=== PATIENT | female | born 1965 | race Hispanic/Latino ===

== ENCOUNTER → 2019-01-02 | Outpatient (CLI) | payer BC | END | disposition home or self-care (01) | LOC: SHCH 10:40 | PROVIDERS: ATTEND Internal Medicine Cardiovascular Disease | DX: I35.0 Nonrheumatic aortic (valve) stenosis (principal); I10 Essential (primary) hypertension | CPT/HCPCS: 93306 ==

== ENCOUNTER → 2019-01-03 | Outpatient (CLI) | payer BC | END | disposition home or self-care (01) | LOC: SHCH 11:19 | PROVIDERS: ATTEND Internal Medicine Cardiovascular Disease | DX: I65.23 Occlusion and stenosis of bilateral carotid arteries (principal) | CPT/HCPCS: 93880 ==

== ENCOUNTER → 2022-08-10 | Outpatient (CLI) | payer BC | END | disposition home or self-care (01) | LOC: RAH 09:52 | PROVIDERS: ATTEND Nurse Practitioner Adult Health | DX: Z12.31 Encounter for screening mammogram for malignant neoplasm of breast (principal) | CPT/HCPCS: 77067 ==

== ENCOUNTER → 2023-09-08 | Outpatient (CLI) | payer BC | END | disposition home or self-care (01) | LOC: RAH 07:39 | PROVIDERS: ATTEND Nurse Practitioner Adult Health | DX: Z12.31 Encounter for screening mammogram for malignant neoplasm of breast (principal) | CPT/HCPCS: 77067 ==

== ENCOUNTER → 2024-09-19 | Outpatient (CLI) | payer BC ==
--- NOTE | 2024-09-21 09:24 | HMCIMG ---
Exam Type: MAMMO SCREENING BILATERAL Clinical Information: ANNUAL SCREENING Comparison: September 08, 2023 Technique: Bilateral mammogram with CAD was performed with CC and MLO projections. FINDINGS: Breast parenchyma is heterogeneously dense which lowers the sensitivity of the mammographic examination. No dominant mass or suspicious microcalcification identified. There is no nipple retraction or skin thickening. Benign-appearing calcifications are seen. CAD shows no worrisome regions. IMPRESSION: 1. No mammographic signs of malignancy. 2. Routine follow-up recommended. CATEGORY 2: BENIGN FINDINGS Note: A negative x-ray should not delay biopsy if a dominant or clinically suspicious mass is present, since 8-10% of cancers are not identified by mammography. Dense breasts may obscure an underlying neoplasm.
== END | disposition home or self-care (01) ==
LOC: RAH 10:46
PROVIDERS: ATTEND Nurse Practitioner Adult Health
DX: Z12.31 Encounter for screening mammogram for malignant neoplasm of breast (principal)
CPT/HCPCS: 77067

== ENCOUNTER 2025-08-18 14:57 | Observation (INO) | payer BC ==
[~2025-08-18] VITALS: Ht 154.9 cm; Wt 59.0 kg
[2025-08-18 17:00] VITALS: BP 160/73; PULSE 65; RESP 16; TEMP 98.2
[2025-08-18] MEDS ORDERED: METO100T14 PO (17:15)
--- NOTE | 2025-08-18 17:53 | HP ---
[facility] HISTORY AND PHYSICAL Date of Service: Aug 18, 2025 Time of Service: 17:35 HISTORY OF PRESENT ILLNESS: [59-year-old female with a history of hypertension presents with recurrent severe epigastric pain. She was seen at [facility] twice this week ( and today) for similar complaints. On both occasions, pain was rated 810/10, located in the epigastric region, and worsened after eating. She reports partial relief with Tylenol (acetaminophen) 2 tablets. No associated nausea, vomiting, diarrhea, fever, or chills. No chest pain or shortness of breath. No radiation of pain. No improvement with antacids, food, position, or lying still. No prior similar episodes. No history of abdominal surgery, alcohol abuse, or gallstones. No recent travel or sick contacts.] REVIEW OF SYSTEMS CONSTITUTIONAL: Denies fevers, chills, or night sweats. No unintentional weight loss reported. NEUROLOGICAL: Denies headache, amaurosis fugax, motor weakness, sensory deficit, vertigo/spinning sensation, gait abnormalities, or tremors. ENT: No hearing loss, otalgia, otorrhea, rhinitis, rhinorrhea, hoarseness, or sore throat. CARDIOVASCULAR: Denies any exertional angina, dyspnea on exertion, orthopnea, paroxysmal nocturnal dyspnea, palpitations, life-threatening arrhythmias, claudication. PULMONARY: Denies any shortness of breath, cough, phlegm/sputum, hemoptysis, pleuritic chest pain. SLEEP: Denies morning headaches, daytime somnolence or napping. Denies difficulty falling asleep, staying asleep, waking from sleep. Denies knowledge of snoring. GASTROINTESTINAL: Denies any type of dysphagia to either liquids or solids. Denies nausea, vomiting, pyrosis, early satiety, abdominal pain, diarrhea, constipation, or changes in stool consistency or caliber. Denies coffee-ground emesis, hematemesis, hematochezia, or melanotic stools. GENITOURINARY: Denies frequency, urgency, nocturia, hematuria or incontinence (Storage/Irritative symptoms.) Low urinary stream, straining to void, urinary intermittency or hesitancy, splitting of the voiding stream, terminal dribbling. ENDOCRINOLOGIC: Denies polyuria, polydipsia, polyphagia or heat/cold intolerances. HEMATOLOGIC: Denies thrombophilia/previous clots, or coagulopathy/bleeding disorders. ONCOLOGIC: Denies personal history of malignancy. DERMATOLOGIC: Denies rashes or pruritus. PSYCHIATRIC: Denies any suicidal or homicidal ideation. Denies hallucinations. 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 Denies tobacco, alcohol or illicit drug use ] FAMILY HISTORY: [Noncontributory ] PHYSICAL EXAM GENERAL APPEARANCE: The patient is awake, alert, and oriented, in no acute cardiopulmonary distress. NEUROLOGICAL: Cranial nerves II-XII grossly intact. Motor is 5/5 in bilateral upper and lower extremities proximal to distal. No sensory deficits. HEENT: Face is symmetric. Pupils are equal and reactive. Extraocular movements are intact. NECK: Supple. No JVD. No thyromegaly. No submental, submandibular, pre- /postauricular, occipital or supraclavicular lymphadenopathy. CHEST: Normal chest expansion. No Telemetry. LUNGS: Absence of any rales, rhonchi or any wheezing. CARDIOVASCULAR: Regular. S1 and S2 normal. No appreciable rubs, murmurs or ga llops. ABDOMEN: Soft, nontender, and nondistended. There is no rebound, voluntary guarding, or rigidity. : Deferred. No [place]. EXTREMITIES: Non-edematous and not cyanotic. No clubbing. Good capillary refill. SKIN: No skin breakdown. LABS: Pending DIAGNOSTICS / RADIOLOGY: [Imaging Abdominal Ultrasound (08/18/2025): Liver: Normal size/echotexture, no focal mass, no biliary ductal dilatation Gallbladder: Normal wall thickness, multiple intraluminal echogenic foci with posterior acoustic shadowing (consistent with cholelithiasis), no pericholecystic fluid, negative [place] sign Biliary Tree: Common bile duct 4.5 mm (normal), no dilation Pancreas/Spleen/Kidneys: Unremarkable Aorta/IVC: Normal caliber, no aneurysm Impression: Cholelithiasis without sonographic evidence of acute cholecystitis ] ASSESSMENT: [ 59-year-old female with hypertension presenting with recurrent, severe, po stprandial epigastric pain. Imaging reveals cholelithiasis without evidence of acute cholecystitis. Labs unremarkable. No evidence of biliary obstruction, pancreatitis, or other acute intra-abdominal pathology. Intractable abdominal pain, POA -current by ultrasound, multiple gallstone present no acute cholecystitis Hypertension -history of hypertension, currently managed Potential biliary colic, POA -symptoms consistent with biliary colic due to cholelithiasis Postprandial pain, POA -pain exacerbated by eating, suggestive of gallbladder involvement ] PLAN: [Admit to short-term observation for pain control and further monitoring. NPO except for medications; advance diet as tolerated. IV fluids as needed for hydration, LR 75 ml/hr. Analgesia: Acetaminophen as needed; avoid NSAIDs due to GI risk. Surgical consult for evaluation of symptomatic cholelithiasis and possible elective cholecystectomy. CT abdomen and pelvis without contrast ordered Gastroenterology consult for possible choledocholithiasis, LFT ordered if unremarkable may discontinue GI consult Monitor labs and clinical status for any signs of cholecystitis or complications. Patient education regarding warning signs (fever, persistent vomiting, jaundice). Continue antihypertensive therapy as home regimen. GI and DVT prophylaxis We will repeat labs tomorrow Patient is a full code Case discussed with attending physician, above plan was formulated ] ADVANCED CARE PLANNING 1. Which of the following were discussed? Hospice Care - Yes / No Therapeutic options - Yes / No Advance Directives - Yes / No Other discussions - 2. Discussed with who? Patient 3. Voluntary nature of this service was explained to the patient? Yes / No 4. Amount of time spent - _20 mins 5. Reviewed by Physician? (if this service was performed by NPP) Yes / No ATTESTATION BY PHYSICIAN I have seen and examined the patient. I reviewed the documentation, medical decision making, and treatment plan as noted by the mid-level provider above. I agree with the findings and plan of care. Chiki Tovar IV, MD, [facility] Aug 18, 2025 17:53
[2025-08-18 18:08] LABS: NUCLEATED RED BLOOD CELLS 0.0 % (0.0-0.19); PLATELET COUNT (AUTO) 223.0 K/uL (130-400); RED BLOOD CELL COUNT(AUTO) 4.24 MIL/uL (4.00-5.50); RED CELL DISTRIBUTION WIDTH 11.7 % (11.0-15.5); WHITE BLOOD COUNT (AUTO) 4.5 K/uL (4.8-10.8)
[2025-08-18 18:18] LABS: CREATININE 0.4 mg/dL (0.5-1.0); GLOMERULAR FILTR. RATE CALC 115.0 mL/min (>90); GLUCOSE,RANDOM 87.0 mg/dL (70-105); INR 0.97 (0.85-1.15); SODIUM SERUM 139.0 mmol/L (136-145); UREA NITROGEN, BLOOD 16.0 mg/dL (7-18)
--- NOTE | 2025-08-18 18:19 | NUR ---
TAKEN OFF UNIT FOR HIDA SCAN
[2025-08-18 18:23] LABS: ASPARTATE AMINOTRANSFERASE 135.0 U/L (10-37); TOTAL PROTEIN, SERUM 7.8 g/dL (6.0-8.3)
[2025-08-18] MEDS: ZOSYN 3.375GM +NS 50ML IV SCH (18:34)
[2025-08-18] MEDS: LACTATED RINGERS 1000ML 1,000 ML IV SCH (18:34)
--- NOTE | 2025-08-18 20:37 | HMCIMG ---
Examination Hepatobiliary study History r/o acute cholecystitis Technique 7 mCi Tc-99m mebrofenin were administered intravenously followed by acquisition of planar images of the abdomen. Findings Following administration of radiotracer, there is prompt appearance of normal hepatic contours, followed by appearance of activity in unremarkable appearing bile ducts. There is prompt filling of the gallbladder. The study is negative for acute cholecystitis. IMPRESSION: Negative HIDA study. No evidence of cholecystitis. /[place]
[2025-08-18 21:05] VITALS: BP 138/59; PULSE 66; RESP 20; TEMP 97.3
[2025-08-19] VITALS (7 sets, daily range): BP systolic 111–124; BP diastolic 54–65; PULSE 63–85; RESP 18; TEMP 97.7–98.3; O2SAT 98–99
[2025-08-19 04:28] LABS: NUCLEATED RED BLOOD CELLS 0.0 % (0.0-0.19); PLATELET COUNT (AUTO) 198.0 K/uL (130-400); RED BLOOD CELL COUNT(AUTO) 3.83 MIL/uL (4.00-5.50); RED CELL DISTRIBUTION WIDTH 11.8 % (11.0-15.5); WHITE BLOOD COUNT (AUTO) 3.2 K/uL (4.8-10.8)
[2025-08-19 04:47] LABS: ASPARTATE AMINOTRANSFERASE 61.0 U/L (10-37); CREATININE 0.4 mg/dL (0.5-1.0); GLOMERULAR FILTR. RATE CALC 115.0 mL/min (>90); GLUCOSE,RANDOM 86.0 mg/dL (70-105); SODIUM SERUM 138.0 mmol/L (136-145); TOTAL PROTEIN, SERUM 6.7 g/dL (6.0-8.3); UREA NITROGEN, BLOOD 19.0 mg/dL (7-18)
--- NOTE | 2025-08-19 05:58 | PN ---
[facility] PROGRESS NOTE Date of Service: Aug 19, 2025 Time of Service: 05:56 SUBJECTIVE: [ ] [59-year-old female with a history of hypertension presents with recurrent severe epigastric pain. She was seen at [facility] twice this week (Wednesday and today) for similar complaints. On both occasions, pain was rated 810/10, located in the epigastric region, and worsened after eating. She reports partial relief with Tylenol (acetaminophen) 2 tablets. No associated nausea, vomiting, diarrhea, fever, or chills. No chest pain or shortness of breath. No radiation of pain. No improvement with antacids, food, position, or lying still. No prior similar episodes. No history of abdominal surgery, alcohol abuse, or gallstones. No recent travel or sick contacts.] 08/19/25 The patient continue with abd pain: reports being dull, she remain NPO waiting for surgery: no fever, no chills. REVIEW OF SYSTEMS CONSTITUTIONAL: Denies fevers, chills, or night sweats. No unintentional weight loss reported. NEUROLOGICAL: Denies headache, amaurosis fugax, motor weakness, sensory deficit, vertigo/spinning sensation, gait abnormalities, or tremors. ENT: No hearing loss, otalgia, otorrhea, rhinitis, rhinorrhea, hoarseness, or sore throat. CARDIOVASCULAR: Denies any exertional angina, dyspnea on exertion, orthopnea, paroxysmal nocturnal dyspnea, palpitations, life-threatening arrhythmias, claudication. PULMONARY: Denies any shortness of breath, cough, phlegm/sputum, hemoptysis, pleuritic chest pain. SLEEP: Denies morning headaches, daytime somnolence or napping. Denies difficulty falling asleep, staying asleep, waking from sleep. Denies knowledge of snoring. GASTROINTESTINAL: Denies any type of dysphagia to either liquids or solids. Denies nausea, vomiting, pyrosis, early satiety, abdominal pain, diarrhea, constipation, or changes in stool consistency or caliber. Denies coffee-ground emesis, hematemesis, hematochezia, or melanotic stools. GENITOURINARY: Denies frequency, urgency, nocturia, hematuria or incontinence (Storage/Irritative symptoms.) Low urinary stream, straining to void, urinary intermittency or hesitancy, splitting of the voiding stream, terminal dribbling. ENDOCRINOLOGIC: Denies polyuria, polydipsia, polyphagia or heat/cold intolerances. HEMATOLOGIC: Denies thrombophilia/previous clots, or coagulopathy/bleeding disorders. ONCOLOGIC: Denies personal history of malignancy. DERMATOLOGIC: Denies rashes or pruritus. PSYCHIATRIC: Denies any suicidal or homicidal ideation. Denies hallucinations. PHYSICAL EXAM GENERAL APPEARANCE: The patient is awake, alert, and oriented, in no acute cardiopulmonary distress. NEUROLOGICAL: Cranial nerves II-XII grossly intact. Motor is 5/5 in bilateral upper and lower extremities proximal to distal. No sensory deficits. HEENT: Face is symmetric. Pupils are equal and reactive. Extraocular movements are intact. NECK: Supple. No JVD. No thyromegaly. No submental, submandibular, pre- /postauricular, occipital or supraclavicular lymphadenopathy. CHEST: Normal chest expansion. No Telemetry. LUNGS: Absence of any rales, rhonchi or any wheezing. CARDIOVASCULAR: Regular. S1 and S2 normal. No appreciable rubs, murmurs or gallops. ABDOMEN: Soft, nontender, and nondistended. There is no rebound, voluntary guarding, or rigidity. : Deferred. No [place]. EXTREMITIES: Non-edematous and not cyanotic. No clubbing. Good capillary refill. SKIN: No skin breakdown. Vital Signs (last 8hr) Date Time Temp Pulse Resp B/P (MAP) Pulse Ox O2 Delivery O2 Flow Rate FiO2 08/19/25 04:00 97.7 64 18 112/54 100 Room Air 08/19/25 00:00 97.7 63 18 111/59 99 Room Air 08/19/25 00:00 97.7 63 18 111/59 99 Room Air LABS: Laboratory: Test 08/19/25 04:10 08/18/25 17:45 Range/Units White Blood Count 3.2 #L 4.8-10.8 K/uL Red Blood Count 3.83 L 4.00-5.50 MIL/uL Hemoglobin 12.1 12.0-16.0 g/dL Hematocrit 34.4 L 36-48 % Mean Corpuscular Volume 89.8 79-99 fL Mean Corpuscular Hemoglobin 31.6 27.0-33.0 pg Mean Corpuscular Hemoglobin Concent 35.2 32.0-36.0 g/dL Red Cell Distribution Width 11.8 11.0-15.5 % Platelet Count 198 130-400 K/uL Mean Platelet Volume 10.6 H 7.5-10.5 fL Nucleated Red Blood Cells 0.0 0.0-0.19 % Sodium Level 138 136-145 mmol/L Potassium Level 3.3 L 3.5-5.1 mmol/L Chloride Level 103 101-111 mmol/L Carbon Dioxide Level 25 21-32 mmol/L Blood Urea Nitrogen 19 H 7-18 mg/dL Creatinine 0.4 L 0.5-1.0 mg/dL Glomerular Filtration Rate Calc 115 >90 mL/min Random Glucose 86 70-105 mg/dL Total Calcium 8.6 8.5-10.1 mg/dL Magnesium Level 2.20 1.80-2.40 mg/dL Total Bilirubin 1.0 # 0.2-1.0 mg/dL Aspartate Amino Transf (AST/SGOT) 61 H 10-37 U/L Alanine Aminotransferase (ALT/SGPT) 93 #H 12-78 U/L Alkaline Phosphatase 59 50-136 U/L Total Protein 6.7 6.0-8.3 g/dL Albumin 3.4 L 3.5-5.0 g/dL Prothrombin Time 10.3 9.6-11.6 SEC Prothromb Time International Ratio 0.97 0.85-1.15 Direct Bilirubin 0.1 0.0-0.3 mg/dL Current Medications Medications (Trade) Dose Ordered Sig/Sunshine Route PRN Reason Start Time Stop Time Status Last Admin Dose Admin Acetaminophen (TYLenol 325MG TAB) 650 mg Q4H PRN PO TEMPERATURE GREATER THAN 101.5 08/18/25 17:30 09/17/25 17:29 Acetaminophen (TYLenol 325MG TAB) 650 mg Q6H PRN PO MILD PAIN (1-3) 08/18/25 17:30 09/17/25 17:29 Acetaminophen (acetaMINOPHEN 1,000MG/100ML) 1,000 mg Q6H6 IVPB 08/18/25 18:00 09/17/25 17:59 08/19/25 02:05 1,000 MG Hydralazine HCl (APRESOLine 20MG INJ) 10 mg Q6H PRN IV ADMINISTER FOR SBP > 160 08/18/25 18:00 09/17/25 17:59 Lactated Ringer's 1,000 ml @ 75 mls/hr [id number] IV 08/18/25 17:30 09/17/25 17:29 08/18/25 18:34 75 MLS/HR Morphine Sulfate (morPHINE 2MG SYG) 2 mg Q4H PRN IVP SEVERE PAIN (7-10) 08/18/25 17:30 08/25/25 17:29 Ondansetron HCl (zoFRAN 4MG INJ) 4 mg Q6H PRN IVP NAUSEA/VOMITING 08/18/25 17:30 09/17/25 17:29 Piperacillin Sod/ Tazobactam Sod (Zosyn 3.375gm+NS 50ml) 3.375 gm Q8H IV 08/18/25 17:30 08/28/25 17:29 08/19/25 02:27 3.375 GM DIAGNOSTICS / RADIOLOGY: [ ] ASSESSMENT: [ 59-year-old female with hypertension presenting with recurrent, severe, postprandial epigastric pain. Imaging reveals cholelithiasis without evidence of acute cholecystitis. Labs unremarkable. No evidence of biliary obstruction, pancreatitis, or other acute intra-abdominal pathology. Intractable abdominal pain, POA -current by ultrasound, multiple gallstone present no acute cholecystitis Hypertension -history of hypertension, currently managed Potential biliary colic, POA -symptoms consistent with biliary colic due to cholelithiasis Postprandial pain, POA -pain exacerbated by eating, suggestive of gallbladder involvement ] PLAN: [Admit to short-term observation for pain control and further monitoring. NPO except for medications; advance diet as tolerated. IV fluids as needed for hydration, LR 75 ml/hr. Analgesia: Acetaminophen as needed; avoid NSAIDs due to GI risk. Surgical consult for evaluation of symptomatic cholelithiasis and possible elective cholecystectomy. imaging: CT abd noted Monitor labs and clinical status for any signs of cholecystitis or complications. Patient education regarding warning signs (fever, persistent vomiting, jaundice). Continue antihypertensive therapy as home regimen. GI and DVT prophylaxis We will repeat labs tomorrow Patient is a full code Case discussed with attending physician, above plan was formulated ] ATTESTATION BY PHYSICIAN I have seen and examined the patient. I reviewed the documentation, medical decision making, and treatment plan as noted by the mid-level provider above. I agree with the findings and plan of care. Chiki Tovar IV, MD, [facility] Aug 19, 2025 05:58
[2025-08-19] MEDS ORDERED: MAGNESIUM 2GM PREMIX 50ML 50 ML IV PRN (06:00)
--- NOTE | 2025-08-19 07:53 | HMCIMG ---
EXAM: CT Abdomen and Pelvis Without IV contrast CLINICAL HISTORY: Patient presents with abdominal pain and suspected cholelithiasis. TECHNIQUE: Axial computed tomography images of the abdomen and pelvis without intravenous contrast. CONTRAST: No IV contrast. COMPARISON: None provided. FINDINGS: LUNG BASES: The lung bases appear clear. No pleural effusions are seen. LIVER: Unremarkable. GALLBLADDER AND BILE DUCTS: The gallbladder contains at least two calculi measuring 1.9 cm x 1.6 cm, consistent with cholelithiasis without features of cholecystitis. No biliary ductal dilatation is evident. PANCREAS: Unremarkable. SPLEEN: Unremarkable. ADRENAL GLANDS: The left adrenal gland contains a 1.2 x 1.5 cm nodule with average HU of 15. Dedicated CT adrenal protocol is recommended. The right adrenal gland is unremarkable. KIDNEYS, URETERS, AND BLADDER: The kidneys appear within normal limits. There is no hydronephrosis or hydroureter. No urinary calculi are seen. STOMACH AND BOWEL: The stomach appears unremarkable. The small bowel loops are under distended. The remainder of the bowel is unremarkable. No evidence of bowel obstruction. No evidence suggesting enteritis or colitis. APPENDIX: The appendix is unremarkable. No evidence of acute appendicitis on CT examination. PERITONEUM: No free fluid. No free air. LYMPH NODES: No lymphadenopathy is evident. REPRODUCTIVE: Unremarkable as visualized. VASCULATURE: Mild atherosclerotic aortic wall calcification is present. No evidence of abdominal aortic aneurysm. BONES: Mild degenerative changes are present in the spine. No aggressive appearing osseous lesion. No acute osseous pathology evident. IMPRESSION: Cholelithiasis without CT features of cholecystitis. Indeterminate 1.2 x 1.5 cm left adrenal nodule with average HU of 15; recommend dedicated CT adrenal protocol. No acute intra-abdominal or pelvic abnormality otherwise. /[place]
--- NOTE | 2025-08-19 11:00 | NUR ---
MET WITH PATIENT AND DTR AT BEDSIDE, PT LIVES ALONE, INDEPENDENT, ACTIVE, DRIVES, EMPLOYED NO HOME SERVICES. NO HOME SERVICES, DCP IS HOME . IF NEEDS SURGERY ON THIS ADMIT, DTR WILL [facility]. NO DC NEEDS ANTICIPATED AT THIS POINT
--- NOTE | 2025-08-19 15:25 | CONS ---
GENERAL SURGERY CONSULTATION NOTE Date/Time Patient Seen: 08/19/2025 2:00 p.m. Requesting Physician: Hospitalist Reason for Consultation: Right upper quadrant abdominal pain History of Present Illness: This is a 59-year-old female that presented to the emergency department for right upper quadrant abdominal pain that appears to have been occurring on and off since Wednesday. Patient reports she has also had multiple similar episodes in the past that were less severe and shorter induration. Patient was afebrile and hemodynamically stable. No leukocytosis. Bilirubin within normal limits. Right upper quadrant ultrasound was performed showing cholelithiasis. A HIDA scan was performed which did not show evidence of acute cholecystitis. Patient was admitted and started on IV antibiotics. Patient reports that her symptoms have resolved. She is hungry. Past Medical History: Some arrhythmia and takes metoprolol not AC Past Surgical History: None Family History: Noncontributory Social History: Nonsmoker nondrinker Current Medications Medications (Trade) Dose Ordered Sig/Sunshine Route Start Time Stop Time Status Last Admin Dose Admin Acetaminophen (acetaMINOPHEN 1,000MG/100ML) 1,000 mg Q6H6 IVPB 08/18/25 18:00 09/17/25 17:59 08/19/25 13:01 1,000 MG Lactated Ringer's 1,000 ml @ 75 mls/hr [id number] IV 08/18/25 17:30 09/17/25 17:29 08/18/25 18:34 75 MLS/HR Piperacillin Sod/ Tazobactam Sod (Zosyn 3.375gm+NS 50ml) 3.375 gm Q8H IV 08/18/25 17:30 08/28/25 17:29 08/19/25 09:47 3.375 GM Review of Systems: CONST: No fever, fatigue, or weight changes. EYES: No recent vision problems. ENT: No congestion, ear pain, or sore throat. C/V: No chest pain, palpitations, or edema. RESP: No cough, congestion, wheezing or shortness of breath. GI: No abdominal pain, nausea, vomiting, constipation, or diarrhea. : No incontinence or dysuria. SKIN: No rash. NEURO: No headache, focal numbness or weakness, dizziness, or seizures. PSYCH: No depression or anxiety. HEME: No abnormal bruising or bleeding. LYMPH: No swollen glands. Physical Examination: GENERAL: No acute distress. HEAD: Normal with no signs of head trauma. EYES: PERRLA, EOMI, conjunctiva and sclera normal. LUNGS: Respirations nonlabored HEART: Regular rate and rhythm ABD: Soft, nondistended, nontender, no rebound, no guarding : Not examined LYMPH: No lymphadenopathy noted. EXT: No clubbing, cyanosis or edema. SKIN: No rashes or lesions noted. NEURO: Awake, alert, and oriented x3. No focal sensory or strength deficits noted. Vital Signs (last 8hr) Date Time Temp Pulse Resp B/P (MAP) Pulse Ox O2 Delivery O2 Flow Rate FiO2 08/19/25 12:00 98.2 85 18 117/63 99 Room Air 08/19/25 08:00 97.9 74 18 124/65 99 Room Air Laboratory: Hematology Labs: Test 08/19/25 04:10 Range/Units White Blood Count 3.2 #L 4.8-10.8 K/uL Red Blood Count 3.83 L 4.00-5.50 MIL/uL Hemoglobin 12.1 12.0-16.0 g/dL Hematocrit 34.4 L 36-48 % Mean Corpuscular Volume 89.8 79-99 fL Mean Corpuscular Hemoglobin 31.6 27.0-33.0 pg Mean Corpuscular Hemoglobin Concent 35.2 32.0-36.0 g/dL Red Cell Distribution Width 11.8 11.0-15.5 % Platelet Count 198 130-400 K/uL Mean Platelet Volume 10.6 H 7.5-10.5 fL Nucleated Red Blood Cells 0.0 0.0-0.19 % Chemistry Labs: Test 08/19/25 04:10 08/18/25 17:45 Range/Units Sodium Level 138 136-145 mmol/L Potassium Level 3.3 L 3.5-5.1 mmol/L Chloride Level 103 101-111 mmol/L Carbon Dioxide Level 25 21-32 mmol/L Blood Urea Nitrogen 19 H 7-18 mg/dL Creatinine 0.4 L 0.5-1.0 mg/dL Glomerular Filtration Rate Calc 115 >90 mL/min Random Glucose 86 70-105 mg/dL Total Calcium 8.6 8.5-10.1 mg/dL Magnesium Level 2.20 1.80-2.40 mg/dL Total Bilirubin 1.0 # 0.2-1.0 mg/dL Aspartate Amino Transf (AST/SGOT) 61 H 10-37 U/L Alanine Aminotransferase (ALT/SGPT) 93 #H 12-78 U/L Alkaline Phosphatase 59 50-136 U/L Total Protein 6.7 6.0-8.3 g/dL Albumin 3.4 L 3.5-5.0 g/dL Direct Bilirubin 0.1 0.0-0.3 mg/dL Coagulation Labs: Test 08/18/25 17:45 Range/Units Prothrombin Time 10.3 9.6-11.6 SEC Prothromb Time International Ratio 0.97 0.85-1.15 Diagnostics / Radiology: PATIENT: NATASHA PASTRANA MR#: [id number] : 1965 SEX: F AGE: 59 LOCATION: S ORDER 31 STATUS: ADM IN REPORT#: [id number] SERVICE 21 REASON: abd pain, ? cholelithiasis ORDERING PHYSICIAN: RODO ADLERP PROCEDURE: ABD PEL WO - CT ABDOMEN/PELVIS W/O CONTRAST EXAM: CT Abdomen and Pelvis Without IV contrast CLINICAL HISTORY: Patient presents with abdominal pain and suspected cholelithiasis. TECHNIQUE: Axial computed tomography images of the abdomen and pelvis without intravenous contrast. CONTRAST: No IV contrast. COMPARISON: None provided. FINDINGS: LUNG BASES: The lung bases appear clear. No pleural effusions are seen. LIVER: Unremarkable. GALLBLADDER AND BILE DUCTS: The gallbladder contains at least two calculi measuring 1.9 cm x 1.6 cm, consistent with cholelithiasis without features of cholecystitis. No biliary ductal dilatation is evident. PANCREAS: Unremarkable. SPLEEN: Unremarkable. ADRENAL GLANDS: The left adrenal gland contains a 1.2 x 1.5 cm nodule with average HU of 15. Dedicated CT adrenal protocol is recommended. The right adrenal gland is unremarkable. KIDNEYS, URETERS, AND BLADDER: The kidneys appear within normal limits. There is no hydronephrosis or hydroureter. No urinary calculi are seen. STOMACH AND BOWEL: The stomach appears unremarkable. The small bowel loops are under distended. The remainder of the bowel is unremarkable. No evidence of bowel obstruction. No evidence suggesting enteritis or colitis. APPENDIX: The appendix is unremarkable. No evidence of acute appendicitis on CT examination. PERITONEUM: No free fluid. No free air. LYMPH NODES: No lymphadenopathy is evident. REPRODUCTIVE: Unremarkable as visualized. VASCULATURE: Mild atherosclerotic aortic wall calcification is present. No evidence of abdominal aortic aneurysm. BONES: Mild degenerative changes are present in the spine. No aggressive appearing osseous lesion. No acute osseous pathology evident. IMPRESSION: Cholelithiasis without CT features of cholecystitis. Indeterminate 1.2 x 1.5 cm left adrenal nodule with average HU of 15; recommend dedicated CT adrenal protocol. No acute intra-abdominal or pelvic abnormality otherwise. /[facility] DICTATED BY: BISHOP GIBSON MD DATE: 08/19/25851 ELECTRONICALLY SIGNED BY: BISHOP GIBSON MD DATE: 08/19/25851 PATIENT: NATASHA PASTRANA MR#: [id number] : 1965 SEX: F AGE: 59 LOCATION: 1MS ORDER 31 STATUS: ADM IN [facility] REPORT#: [id number] SERVICE 21 REASON: r/o acute cholecystitis ORDERING PHYSICIAN: RODO ADLER AGAP PROCEDURE: HIDAWO - NM HIDA WO EF/CCK Examination Hepatobiliary study History r/o acute cholecystitis Technique 7 mCi Tc-99m mebrofenin were administered intravenously followed by acquisition of planar images of the abdomen. Findings Following administration of radiotracer, there is prompt appearance of normal hepatic contours, followed by appearance of activity in unremarkable appearing bile ducts. There is prompt filling of the gallbladder. The study is negative for acute cholecystitis. IMPRESSION: Negative HIDA study. No evidence of cholecystitis. /[facility] DICTATED BY: JULIO CESAR ALVARADO Jr., MD DATE: 08/18/252135 ELECTRONICALLY SIGNED BY: JULIO CESAR ALVARADO Jr., MD DATE: 08/18/252135 Assessment: This is a 59-year-old female with episodes of right upper quadrant abdominal pain likely due to symptomatic cholelithiasis. Plan: I recommend to give the patient a diet. If she tolerates she can be discharged with follow up with me to discuss surgical options. JASS CHRISTIAN DO Aug 19, 2025 15:25
--- NOTE | 2025-08-19 19:11 | NUR ---
REPAGED GI CONSULT CONSULT PAGED FOR LILLIAN ADLER MD.
[2025-08-20] VITALS: BP 96/54; PULSE 68; RESP 18; TEMP 97.9
[2025-08-20 04:00] VITALS: BP 123/60; PULSE 65; RESP 18; TEMP 98
[2025-08-20] MEDS: ZOSYN 3.375GM +NS 50ML IV SCH (06:08)
[2025-08-20] MEDS ORDERED: PoTASSium chl 10% ELIXIR 20MEQ 20 MEQ/15 ML UDCUP PO PRN (07:30)
[2025-08-20] MEDS ORDERED: PoTASSium chloRIDE 20MEQ ER 20 MEQ ERTAB PO PRN (07:30)
[2025-08-20 07:31] VITALS: BP 127/65; PULSE 67; RESP 18; TEMP 97.8
--- NOTE | 2025-08-20 09:46 | DS ---
Discharge Summary Hospital Course Summary: [59-year-old female with a history of hypertension presents with recurrent severe epigastric pain. She was seen at [facility] twice this week (Wednesday and today) for similar complaints. On both occasions, pain was rated 810/10, located in the epigastric region, and worsened after eating. She reports partial relief with Tylenol (acetaminophen) 2 tablets. No associated nausea, vomiting, diarrhea, fever, or chills. No chest pain or shortness of breath. No radiation of pain. No improvement with antacids, food, position, or lying still. No prior similar episodes. No history of abdominal surgery, alcohol abuse, or gallstones. No recent travel or sick contacts.] 08/19/25 The patient continue with abd pain: reports being dull, she remain NPO waiting for surgery: no fever, no chills. 08/20/2025 patient is clinically and hemodynamically stable for discharge. No surgical intervention as per general surgeon patient tolerating diet no nausea no vomiting no abdominal pain patient to follow-up with surgical services to discuss surgical options outpatient setting. No Chest pain or shortness for breath all questions addressed Final General Surgery Recommendations Assessment: This is a 59-year-old female with episodes of right upper quadrant abdominal pain likely due to symptomatic cholelithiasis. Plan: I recommend to give the patient a diet. If she tolerates she can be discharged with follow up with me to discuss surgical options. Decision was made to discharge patient. Follow up with PCP and General Surgery. Medications as per med rec. 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 Requesting Physician: Hospitalist Reason for Consultation: Right upper quadrant abdominal pain History of Present Illness: This is a 59-year-old female that presented to the emergency department for right upper quadrant abdominal pain that appears to have been occurring on and off since Wednesday. Patient reports she has also had multiple similar episodes in the past that were less severe and shorter induration. Patient was afebrile and hemodynamically stable. No leukocytosis. Bilirubin within normal limits. Right upper quadrant ultrasound was performed showing cholelithiasis. A HIDA scan was performed which did not show evidence of acute cholecystitis. Patient was admitted and started on IV antibiotics. Patient reports that her symptoms have resolved. She is hungry. Past Medical History: Some arrhythmia and takes metoprolol not AC Past Surgical History: None Family History: Noncontributory Social History: Nonsmoker nondrinker Current Medications Medications (Trade) Dose Ordered Sig/Sunshine Route Start Time Stop Time Status Last Admin Dose Admin Acetaminophen (acetaMINOPHEN 1,000MG/100ML) 1,000 mg Q6H6 IVPB 08/18/25 18:00 09/17/25 17:59 08/19/25 13:01 1,000 MG Lactated Ringer's 1,000 ml @ 75 mls/hr [id number] IV 08/18/25 17:30 09/17/25 17:29 08/18/25 18:34 75 MLS/HR Piperacillin Sod/ Tazobactam Sod (Zosyn 3.375gm+NS 50ml) 3.375 gm Q8H IV 08/18/25 17:30 08/28/25 17:29 08/19/25 09:47 3.375 GM Review of Systems: CONST: No fever, fatigue, or weight changes. EYES: No recent vision problems. ENT: No congestion, ear pain, or sore throat. C/V: No chest pain, palpitations, or edema. RESP: No cough, congestion, wheezing or shortness of breath. GI: No abdominal pain, nausea, vomiting, constipation, or diarrhea. : No incontinence or dysuria. SKIN: No rash. NEURO: No headache, focal numbness or weakness, dizziness, or seizures. PSYCH: No depression or anxiety. HEME: No abnormal bruising or bleeding. LYMPH: No swollen glands. Physical Examination: GENERAL: No acute distress. HEAD: Normal with no signs of head trauma. EYES: PERRLA, EOMI, conjunctiva and sclera normal. LUNGS: Respirations nonlabored HEART: Regular rate and rhythm ABD: Soft, nondistended, nontender, no rebound, no guarding : Not examined LYMPH: No lymphadenopathy noted. EXT: No clubbing, cyanosis or edema. SKIN: No rashes or lesions noted. NEURO: Awake, alert, and oriented x3. No focal sensory or strength deficits noted. Vital Signs (last 8hr) Date Time Temp Pulse Resp B/P (MAP) Pulse Ox O2 Delivery O2 Flow Rate FiO2 08/19/25 12:00 98.2 85 18 117/63 99 Room Air 08/19/25 08:00 97.9 74 18 124/65 99 Room Air Laboratory: Hematology Labs: Test 08/19/25 04:10 Range/Units White Blood Count 3.2 #L 4.8-10.8 K/uL Red Blood Count 3.83 L 4.00-5.50 MIL/uL Hemoglobin 12.1 12.0-16.0 g/dL Hematocrit 34.4 L 36-48 % Mean Corpuscular Volume 89.8 79-99 fL Mean Corpuscular Hemoglobin 31.6 27.0-33.0 pg Mean Corpuscular Hemoglobin Concent 35.2 32.0-36.0 g/dL Red Cell Distribution Width 11.8 11.0-15.5 % Platelet Count 198 130-400 K/uL Mean Platelet Volume 10.6 H 7.5-10.5 fL Nucleated Red Blood Cells 0.0 0.0-0.19 % Chemistry Labs: Test 08/19/25 04:10 08/18/25 17:45 Range/Units Sodium Level 138 136-145 mmol/L Potassium Level 3.3 L 3.5-5.1 mmol/L Chloride Level 103 101-111 mmol/L Carbon Dioxide Level 25 21-32 mmol/L Blood Urea Nitrogen 19 H 7-18 mg/dL Creatinine 0.4 L 0.5-1.0 mg/dL Glomerular Filtration Rate Calc 115 >90 mL/min Random Glucose 86 70-105 mg/dL Total Calcium 8.6 8.5-10.1 mg/dL Magnesium Level 2.20 1.80-2.40 mg/dL Total Bilirubin 1.0 # 0.2-1.0 mg/dL Aspartate Amino Transf (AST/SGOT) 61 H 10-37 U/L Alanine Aminotransferase (ALT/SGPT) 93 #H 12-78 U/L Alkaline Phosphatase 59 50-136 U/L Total Protein 6.7 6.0-8.3 g/dL Albumin 3.4 L 3.5-5.0 g/dL Direct Bilirubin 0.1 0.0-0.3 mg/dL Coagulation Labs: Test 08/18/25 17:45 Range/Units Prothrombin Time 10.3 9.6-11.6 SEC Prothromb Time International Ratio 0.97 0.85-1.15 Diagnostics / Radiology: PATIENT: NATASHA PASTRANA MR#: [id number] : 1965 SEX: F AGE: 59 LOCATION: 1MS ORDER 31 STATUS: ADM IN REPORT#: [id number] SERVICE 21 REASON: abd pain, ? cholelithiasis ORDERING PHYSICIAN: RODO ADLER PROCEDURE: ABD PEL WO - CT ABDOMEN/PELVIS W/O CONTRAST EXAM: CT Abdomen and Pelvis Without IV contrast CLINICAL HISTORY: Patient presents with abdominal pain and suspected cholelithiasis. TECHNIQUE: Axial computed tomography images of the abdomen and pelvis without intravenous contrast. CONTRAST: No IV contrast. COMPARISON: None provided. FINDINGS: LUNG BASES: The lung bases appear clear. No pleural effusions are seen. LIVER: Unremarkable. GALLBLADDER AND BILE DUCTS: The gallbladder contains at least two calculi measuring 1.9 cm x 1.6 cm, consistent with cholelithiasis without features of cholecystitis. No biliary ductal dilatation is evident. PANCREAS: Unremarkable. SPLEEN: Unremarkable. ADRENAL GLANDS: The left adrenal gland contains a 1.2 x 1.5 cm nodule with average HU of 15. Dedicated CT adrenal protocol is recommended. The right adrenal gland is unremarkable. KIDNEYS, URETERS, AND BLADDER: The kidneys appear within normal limits. There is no hydronephrosis or hydroureter. No urinary calculi are seen. STOMACH AND BOWEL: The stomach appears unremarkable. The small bowel loops are under distended. The remainder of the bowel is unremarkable. No evidence of bowel obstruction. No evidence suggesting enteritis or colitis. APPENDIX: The appendix is unremarkable. No evidence of acute appendicitis on CT examination. PERITONEUM: No free fluid. No free air. LYMPH NODES: No lymphadenopathy is evident. REPRODUCTIVE: Unremarkable as visualized. VASCULATURE: Mild atherosclerotic aortic wall calcification is present. No evidence of abdominal aortic aneurysm. BONES: Mild degenerative changes are present in the spine. No aggressive appearing osseous lesion. No acute osseous pathology evident. IMPRESSION: Cholelithiasis without CT features of cholecystitis. Indeterminate 1.2 x 1.5 cm left adrenal nodule with average HU of 15; recommend dedicated CT adrenal protocol. No acute intra-abdominal or pelvic abnormality otherwise. /[facility] DICTATED BY: BISHOP GIBSON MD DATE: 08/19/25851 ELECTRONICALLY SIGNED BY: BISHOP GIBSON MD DATE: 08/19/25851 PATIENT: NATASHA PASTRANA MR#: [id number] : 1965 SEX: F AGE: 59 LOCATION: 1MS ORDER 31 STATUS: ADM IN [facility] REPORT#: [id number] SERVICE 21 REASON: r/o acute cholecystitis ORDERING PHYSICIAN: RODO ADLER AGACNP PROCEDURE: HIDAWO - NM HIDA WO EF/CCK Examination Hepatobiliary study History r/o acute cholecystitis Technique 7 mCi Tc-99m mebrofenin were administered intravenously followed by acquisition of planar images of the abdomen. Findings Following administration of radiotracer, there is prompt appearance of normal hepatic contours, followed by appearance of activity in unremarkable appearing bile ducts. There is prompt filling of the gallbladder. The study is negative for acute cholecystitis. IMPRESSION: Negative HIDA study. No evidence of cholecystitis. /[facility] DICTATED BY: JULIO CESAR ALVARADO Jr., MD DATE: 08/18/252135 ELECTRONICALLY SIGNED BY: JULIO CESAR ALVARADO Jr., MD DATE: 08/18/252135 Assessment: This is a 59-year-old female with episodes of right upper quadrant abdominal pain likely due to symptomatic cholelithiasis. Plan: I recommend to give the patient a diet. If she tolerates she can be discharged with follow up with me to discuss surgical options. Assessment/Plan: Discharged [ 59-year-old female with hypertension presenting with recurrent, severe, postprandial epigastric pain. Imaging reveals cholelithiasis without evidence of acute cholecystitis. Labs unremarkable. No evidence of biliary obstruction, pancreatitis, or other acute intra-abdominal pathology. Intractable abdominal pain, POA resolved Hypertension Potential biliary colic, POA Postprandial pain, POA resolved PLAN: ADMISSION DATE: 08/18/2025 DISCHARGE DATE: 08/20/2025 DISPOSITION: Home CONDITION: Stable DIRECTOR CONSTRUCTION SERVICES(S): General surgeon FOLLOW UP APPOINTMENT(S): PCP 2-[address] Womack 1 wk to discussed Surgical options. PROCEDURES: No surgical intervention on this admission IMAGING (S) report attached to summary : HIDA scan abdomen pelvis CT MICROBIOLOGY: report attached to summary; none ACTIVITY: Ad yordan HOME MEDICATIONS reviewed we will continue CHANGES ON HOME MEDICATIONS none NEW MEDICATIONS none TEACHING: Advised to avoid greasy foods, and high saturated fats. Emergency instructions: The patient was instructed to present to the nearest Emergency Department or call 911 should their symptoms return or worsen. Home Medications: Reported Medications Metoprolol Tartrate (Metoprolol Tartrate) 100 Mg Tablet, 1 TAB PO BID for 30 Days, #60 TAB 0 Refills 08/18/25 Continued Medications: Metoprolol Tartrate (Metoprolol Tartrate) 100 Mg Tablet 1 TAB PO BID for 30 Days, #60 TAB 0 Refills Time spent arranging discharge: 31-60 minutes ATTESTATION BY PHYSICIAN I have seen and examined the patient. I reviewed the documentation, medical decision making, and treatment plan as noted by the mid-level provider above. I agree with the findings and plan of care. Chiki Kline IV, MD, [facility] Aug 20, 2025 09:46 CHIKI KLINE IV, MD Aug 20, 2025 19:29
[2025-08-20 10:03] LABS: IMMATURE GRANULOCYTE ABSOLUTE 0.00 K/uL (0-1); NUCLEATED RED BLOOD CELLS 0.0 % (0.0-0.19); PLATELET COUNT (AUTO) 216 K/uL (130-400); RED BLOOD CELL COUNT(AUTO) 4.03 MIL/uL (4.00-5.50); RED CELL DISTRIBUTION WIDTH 11.9 % (11.0-15.5); WHITE BLOOD COUNT (AUTO) 4.3 K/uL (4.8-10.8)
[2025-08-20 10:12] LABS: CREATININE 0.5 mg/dL (0.5-1.0); GLOMERULAR FILTR. RATE CALC 109.0 mL/min (>90); GLUCOSE,RANDOM 136.0 mg/dL (70-105); SODIUM SERUM 138.0 mmol/L (136-145); UREA NITROGEN, BLOOD 11.0 mg/dL (7-18)
[2025-08-20 10:17] LABS: ASPARTATE AMINOTRANSFERASE 32.0 U/L (10-37); TOTAL PROTEIN, SERUM 7.1 g/dL (6.0-8.3)
--- NOTE | 2025-08-20 10:49 | CONS ---
GASTROENTEROLOGY CONSULTATION NOTE Date of Consultation: Aug 20, 2025 Time of Consultation: 10:49 History of Present Illness: 59-year-old female with a history of hypertension presents with recurrent severe epigastric pain. She was seen at [facility] twice this week (Wednesday and today) for similar complaints. On both occasions, pain was rated 810/10, located in the epigastric region, and worsened after eating. She reports partial relief with Tylenol (acetaminophen) 2 tablets. No associated nausea, vomiting, diarrhea, fever, or chills. No chest pain or shortness of breath. No radiation of pain. No improvement with antacids, food, position, or lying still. No prior similar episodes. No history of abdominal surgery, alcohol abuse, or gallstones. No recent travel or sick contacts. We were consulted due to cholelithiasis. LFTs trending down. Review of Systems: CONSTITUTIONAL: No malaise or change in sensation of wellbeing. ENMT: No rhinorrhea, otorrhea, sinus pain, ear ache. CARDIOVASCULAR: No angina, palpitations, orthopnea or paroxysmal dyspnea. RESPIRATORY: No SOB. GASTROINTESTINAL: No abdominal pain, nausea, vomiting, diarrhea, hematemesis, melena or change in the patient's habitual bowel movements consistency/number. GENITOURINARY: No dysuria, hematuria or change in bladder continence. MUSCULOSKELETAL: No new muscle pain or decrease in muscular strength. No new joint swelling, redness or tenderness. SKIN: No new rash. 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 Denies tobacco, alcohol or illicit drug use ] FAMILY HISTORY: Coded Allergies: No Known Allergies (Unverified Allergy, Unknown, 08/18/25) Physical Exam: GEN: Awake, alert, oriented in person, time and place, and in no acute distress. HEENT: No sinus tenderness. Tympanic membranes were not examined. No rhinorrhea. Oral pharyngeal mucosa is pink, moist and within normal limits. Neck is supple with no cervical lymphadenopathy, thyromegaly or JVD. CHEST: Inspection, palpation and percussion of the chest were unremarkable. Lung auscultation revealed normal breath sounds bilaterally. CARDIAC: PMI is within normal limits. Heart sounds are regular. Normal S1, S2. No gallop or murmur. ABD: Soft, non-tender and not distended. No peritoneal signs on palpation. No organomegaly. Normal bowel sounds. EXT: No cyanosis or clubbing. No edema. SKIN: Intact. No rashes. JOINTS: No evidence of synovitis or acute arthritis. NEURO: Alert and oriented to name, place and person. Cranial nerve examination is unremarkable. No focal motor deficits. Normal speech. Gait is normal. Strength is normal. Vital Sign (Last 24 Hours) 08/19/25 20:00 O2 Flow Rate 0 FiO2 21 Laboratory: [ ] Laboratory: Test 08/20/25 09:58 08/18/25 17:45 Range/Units White Blood Count 4.3 L 4.8-10.8 K/uL Red Blood Count 4.03 4.00-5.50 MIL/uL Hemoglobin 12.7 12.0-16.0 g/dL Hematocrit 37.3 36-48 % Mean Corpuscular Volume 92.6 79-99 fL Mean Corpuscular Hemoglobin 31.5 27.0-33.0 pg Mean Corpuscular Hemoglobin Concent 34.0 32.0-36.0 g/dL Red Cell Distribution Width 11.9 11.0-15.5 % Platelet Count 216 130-400 K/uL Mean Platelet Volume 10.0 7.5-10.5 fL Immature Granulocyte % (Auto) 0.0 0-1 % Neutrophils (%) (Auto) 51.8 40.0-77.0 % Lymphocytes (%) (Auto) 38.4 21.0-51.0 % Monocytes (%) (Auto) 8.2 3.0-13.0 % Eosinophils (%) (Auto) 0.7 0.0-8.0 % Basophils (%) (Auto) 0.9 0.0-5.0 % Neutrophils # (Auto) 2.2 1.8-7.7 K/uL Lymphocytes # (Auto) 1.6 1.0-4.8 K/uL Monocytes # (Auto) 0.4 0.1-1.0 K/uL Eosinophils # (Auto) 0.03 0.00-0.70 K/uL Basophils # (Auto) 0.04 0.00-0.20 K/uL Absolute Immature Granulocyte (auto 0.00 0-1 K/uL Nucleated Red Blood Cells 0.0 0.0-0.19 % Sodium Level 138 136-145 mmol/L Potassium Level 3.2 L 3.5-5.1 mmol/L Chloride Level 103 101-111 mmol/L Carbon Dioxide Level 29 21-32 mmol/L Blood Urea Nitrogen 11 7-18 mg/dL Creatinine 0.5 0.5-1.0 mg/dL Glomerular Filtration Rate Calc 109 >90 mL/min Random Glucose 136 H 70-105 mg/dL Total Calcium 8.7 8.5-10.1 mg/dL Magnesium Level 2.10 1.80-2.40 mg/dL Total Bilirubin 0.9 0.2-1.0 mg/dL Aspartate Amino Transf (AST/SGOT) 32 10-37 U/L Alanine Aminotransferase (ALT/SGPT) 71 12-78 U/L Alkaline Phosphatase 63 50-136 U/L Total Protein 7.1 6.0-8.3 g/dL Albumin 3.6 3.5-5.0 g/dL Prothrombin Time 10.3 9.6-11.6 SEC Prothromb Time International Ratio 0.97 0.85-1.15 Direct Bilirubin 0.1 0.0-0.3 mg/dL Current Medications Medications (Trade) Dose Ordered Sig/Sunshine Route PRN Reason Start Time Stop Time Status Last Admin Dose Admin Acetaminophen (TYLenol 325MG TAB) 650 mg Q4H PRN PO TEMPERATURE GREATER THAN 101.5 08/18/25 17:30 09/17/25 17:29 Acetaminophen (TYLenol 325MG TAB) 650 mg Q6H PRN PO MILD PAIN (1-3) 08/18/25 17:30 09/17/25 17:29 Acetaminophen (acetaMINOPHEN 1,000MG/100ML) 1,000 mg Q6H6 IVPB 08/18/25 18:00 09/17/25 17:59 08/20/25 06:08 1,000 MG Hydralazine HCl (APRESOLine 20MG INJ) 10 mg Q6H PRN IV ADMINISTER FOR SBP > 160 08/18/25 18:00 09/17/25 17:59 Lactated Ringer's 1,000 ml @ 75 mls/hr [id number] IV 08/18/25 17:30 09/17/25 17:29 08/19/25 20:23 75 MLS/HR Magnesium Sulfate 50 ml @ 0 mls/hr PROTOCOL PRN IV low mag level 08/19/25 06:00 09/18/25 05:59 Morphine Sulfate (morPHINE 2MG SYG) 2 mg Q4H PRN IVP SEVERE PAIN (7-10) 08/18/25 17:30 08/25/25 17:29 Ondansetron HCl (zoFRAN 4MG INJ) 4 mg Q6H PRN IVP NAUSEA/VOMITING 08/18/25 17:30 09/17/25 17:29 Piperacillin Sod/ Tazobactam Sod (Zosyn 3.375gm+NS 50ml) 3.375 gm Q8H IV 08/18/25 17:30 08/20/25 05:57 DC 08/19/25 17:46 3.375 GM Piperacillin Sod/ Tazobactam Sod (Zosyn 3.375gm+NS 50ml) 3.375 gm Q8H IV 08/20/25 06:00 08/28/25 05:59 08/20/25 06:08 3.375 GM Potassium Chloride 100 ml @ 50 mls/hr AD PRN IV POTASSIUM PROTOCOL 08/19/25 06:00 09/18/25 05:59 08/19/25 06:16 50 MLS/HR Potassium Chloride 100 ml @ 100 mls/hr AD PRN IV POTASSIUM PROTOCOL 08/20/25 07:30 08/20/25 07:26 DC Potassium Chloride (K-Dur/Klor-Con 20meq) 20 meq AD PRN PO POTASSIUM PROTOCOL 08/20/25 07:30 09/19/25 07:29 Potassium Chloride (KCl 10% Elixir 20meq/15ml) 20 meq AD PRN PO POTASSIUM PROTOCOL 08/20/25 07:30 09/19/25 07:29 Diagnostics / Radiology: [COPY/PASTE HERE IF NO REPORTS PLEASE DELETE SECTION] Assessment: Abnormal LFTs Cholelithiasis HTN Plan: Follow surgery recommendations No plan for EUS or ERCP as not warranted Call with questions, concerns or change in clinical status Thank you for this consult LILI CHATMAN [employer] OPERATOR Aug 20, 2025 10:49
[2025-08-20] MEDS: PoTASSium chloRIDE 20MEQ ER 20 MEQ ERTAB PO ONE (11:56)
== END 2025-08-20 12:15 | disposition still patient (30) ==
LOC: INTOOBSV 16:58 → 1MS 16:58
PROVIDERS: ADMIT Internal Medicine; ATTEND Internal Medicine
DX: K80.20 Calculus of gallbladder without cholecystitis without obstruction (principal); I10 Essential (primary) hypertension; R10.13 Epigastric pain; Z79.899 Other long term (current) drug therapy; Z98.890 Other specified postprocedural states
CPT/HCPCS: 96361 ×3; 96365; 96366 ×3; 96368; 80053 ×3; 85027 ×2; 85610; 36415 ×3; 74176; 78226; 83735 ×2; 85025; G0378 ×43; J2543 ×5; A9537; J3480; 80076

== ENCOUNTER → 2025-09-24 | Outpatient (CLI) | payer BC ==
[~2025-09-24] MED LIST: METO100T14 PO
== END | disposition home or self-care (01) ==
LOC: RAH 14:59
PROVIDERS: ATTEND Nurse Practitioner Adult Health
DX: Z12.31 Encounter for screening mammogram for malignant neoplasm of breast (principal)
CPT/HCPCS: 77063; 77067